=== PATIENT | male | born 1995 | race Caucasian/White ===

== ENCOUNTER 2019-01-02 12:19 | Emergency (ER) | payer BC ==
--- NOTE | 2019-01-02 12:58 | ED Physician Documentation ---
History of Present Illness - Stated complaint Stated Complaint: MALE - Chief complaint Chief Complaint: UTI - History obtained from History obtained from: Patient - Additonal information Additional information: Patient is a previously healthy 23-year-old male presenting with concern for possible syphilis as he was recently contacted by the [facility] department as a known contact of someone diagnosed with syphilis. Patient reports that he only has sex with women and the contact from [place] occurred in May 2018. Patient had STD testing in July 2018, which returned unremarkable. Patient denies testicular complaints, penile complaints including drainage or pain, as well as any urinary changes, lesions or rash to the groin. Patient also denies fever, vomiting, abdominal pain, stool changes.Patient does note that over the past 1 month he has noticed a erythematous, nonpainful rash to the palms bilaterally only. No other rashes noted. Patient has no other complaints and is otherwise been in his normal state of health. Patient denies any improving or worsening factors to his symptoms. Review of Systems Constitutional: denies: Fever Skin: reports: Rash PD PAST MEDICAL HISTORY - Past Medical History Past Medical History: No - Past Surgical History Past Surgical History: No - Present Medications Home Medications: Ambulatory Orders Medication Instructions Recorded Confirmed No Known Home Medications 01/02/19 01/02/19 - Allergies Allergies/Adverse Reactions: Allergies Allergy/AdvReac Type Severity Reaction Status Date / Time No Known Drug Allergies Allergy Verified 01/02/19 12:27 PD ED PE NORMAL - General General: Alert and oriented X 3, No acute distress, Well developed/nourished - HEENT HEENT: Atraumatic, Moist mucous membranes, Pharynx benign - Cardiac Cardiac: Strong equal pulses (Cap refill brisk) - Respiratory Respiratory: No respiratory distress - Abdomen Abdomen: Soft, Non tender - Derm Derm: Normal color, Warm and dry. No: No rash (Nonraised, nonpainful and otherwise blanching erythematous rash to palms of both hands. No mucous membrane involvement. No other rash noted otherwise.) - Neuro Neuro: Alert and oriented X 3, No motor deficit Eye Opening: To Pain - Psych Psych: Normal mood, Normal affect Results - Vitals Vitals: Vital Signs - 24 hr 01/02/19 12:25 Temperature 36.0 C L Heart Rate 85 Respiratory 14 Rate Blood Pressure 138/65 H O2 Saturation 96 Oxygen O2 Source Room air PD MEDICAL DECISION MAKING - ED course Complexity details: considered differential, d/w patient ED course: Patient was contacted by the [facility] to notify him of potential exposure to syphilis. Patient reports that his only symptoms is a potential rash to the palms of both hands. Do not find evidence of tertiary signs of syphilis. Patient denies other symptoms that raise high suspicion for systemic illness or other acute process including other STDs. Patient denies any lesions or complaints in the groin. Do not have high suspicion for other comp occasions such as UTI or other intra-abdominal infections. STD and syphilis testing performed in ED. Patient empirically treated and advised on safe sex practices, return precautions, and follow-up. Patient voiced understanding and is comfortable with discharge plan. Departure - Departure Disposition: 01 Home, Self Care Clinical Impression: Exposure to STD Condition: Good Instructions: ED STD Male Treated Follow-Up: your,doctor [Other] Comments: Please practice safe sex and contact all previous and current sexual partners to notify of your potential exposure to syphilis and direct them to be tested and treated appropriately, particularly before you engage in sex again. Please follow-up with your primary care physician or health department in the next 2-3 days and return to ED sooner if experience worsening symptoms or other concerns.
[2019-01-02] MEDS ORDERED: PENICILLIN G BENZATHINE 600,000 UNIT/ML SYRINGE IM STA (13:13)
[2019-01-02] MEDS ORDERED: cefTRIAXone 250 MG VIAL IM STA (13:14)
[2019-01-02] MEDS ORDERED: AZITHROMYCIN 250 MG TABLET PO STA (13:14)
[2019-01-02] MEDS ORDERED: LIDOCAINE 1% 2 ML VIAL MC ONE (13:14)
[2019-01-02] MEDS ORDERED: metroNIDAZOLE 250 MG TABLET PO STA (13:15)
[2019-01-02 13:28] VITALS: BP 136/65
== END 2019-01-02 13:59 | disposition home or self-care (01) ==
LOC: ED 12:19
DX: Z20.2 Contact with and (suspected) exposure to infections with a predominantly sexual mode of transmission (principal)
CPT/HCPCS: 36415; 86780; 96372; 99282; 99283; A9270; 87491; 87591

== ENCOUNTER 2019-01-31 21:32 | Emergency (ER) | payer BC ==
--- NOTE | 2019-01-31 21:40 | ED Physician Documentation ---
PD HPI MALE - Stated complaint Stated Complaint: MALE - Chief complaint Chief Complaint: General - History obtained from History obtained from: Patient - History of Present Illness Timing - onset: How many months ago (few months ago - he had unprotected intercourse with another male, and he got a call from Health Dept that the person had been exposed to HIV. Pt has appt with health dept provider next week for testing, but wanted to try to get a result sooner.) Associated symptoms: Other (has not had fevers, weight loss, viral illness type symptoms.). No: Dysuria, Genital sore / lesion Similar symptoms before: Has not had sx before Recently seen: Emergency Dept (had been notified of exposure to syphylis from a prior partner and was tested positive for it, so treated for it. Was not tested for HIV at that visit.) Review of Systems Constitutional: denies: Fever, Chills, Myalgias, Fatigue, Weight Loss Nose: denies: Rhinorrhea / runny nose, Congestion Throat: denies: Sore throat Respiratory: denies: Cough PD PAST MEDICAL HISTORY - Past Medical History Cardiovascular: None Respiratory: None Neuro: None : None - Past Surgical History Past Surgical History: No - Present Medications Home Medications: Ambulatory Orders Medication Instructions Recorded Confirmed No Known Home Medications 01/02/19 01/31/19 - Allergies Allergies/Adverse Reactions: Allergies Allergy/AdvReac Type Severity Reaction Status Date / Time No Known Drug Allergies Allergy Verified 01/31/19 21:37 PD ED PE NORMAL - Vitals Vital signs reviewed: Yes - General General: Alert and oriented X 3, No acute distress, Well developed/nourished - HEENT HEENT: Moist mucous membranes - Male Male : Deferred - Neuro Neuro: Alert and oriented X 3, No motor deficit, Normal speech Results - Vitals Vitals: Vital Signs - 24 hr 01/31/19 01/31/19 21:35 22:44 Temperature 36 C L Heart Rate 113 H 89 Respiratory 18 17 Rate Blood Pressure 141/79 H 123/73 O2 Saturation 97 97 Oxygen O2 Source Room air PD MEDICAL DECISION MAKING - ED course Complexity details: considered differential (he is concerned about HIV. I thought our lab did rapid testing, but that is only for health care worker exposures, apparently. So he will need to follow up with local clinic. He has appt with Dept of Health worker next week, and that person could just follow up the ER lab result (as counseling needed with result in either positive or negative). ), d/w patient Departure - Departure Disposition: 01 Home, Self Care Clinical Impression: Exposure to HIV Condition: Stable Record reviewed to determine appropriate education?: Yes Follow-Up: [facility] [Provider Group] [facility] [Provider Group] Comments: The HIV test we do here is not the rapid test, due to the lower reliability of that. We will get the result of your test in several days from our reference lab. Follow-up with your primary care next week for the results. Discharge Date/Time: 01/31/19 22:46
[2019-01-31 22:48] VITALS: BP 123/73
[2019-02-02 14:18] LABS: HIV AG/AB 4TH GEN NON-REACTIVE (NON-REACTIVE)
== END 2019-01-31 22:46 | disposition home or self-care (01) ==
LOC: ED 21:32
DX: Z20.6 Contact with and (suspected) exposure to human immunodeficiency virus [HIV] (principal)
CPT/HCPCS: 36415; 87389; 99282; 99283